=== PATIENT | male | born 1985 | race Caucasian/White ===

== ENCOUNTER 2019-05-06 00:17 | Emergency (ER) | payer BC, OTHER ==
[~2019-05-06] VITALS: Ht 162.9 cm; Wt 75.0 kg
--- NOTE | 2019-05-06 00:40 | ED Upper Extremity ---
General Chief Complaint: Upper Extremity Stated Complaint: LEFT SHOULDER PAIN Nursing Triage Note: PT. REPORTED HE WHEN HE WOKE UP 2 DAYS AGO HE HAD LEFT SHOULDER PAIN. HE IS UNABLE TO SLEEP BECAUSE OF THE PAIN. PT. REPORTED UNKNOWN CAUSE FOR THE SHOULDER PAIN. Nursing Sepsis Screen: No Definite Risk Source: patient Exam Limitations: no limitations History of Present Illness Date Seen by Provider: May 06, 2019 Time Seen by Provider: 00:28 Initial Comments The patient is a 33-year-old male presents for evaluation of 2-3 days of upper left shoulder/back discomfort which is been bothering him. 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 He cannot think of any recent injury to the shoulder or any reason for his pain. He states that when he takes a deep breath it makes the pain worse. He says he is having difficulty sleeping because of the pain. He is able to fully lift the left arm over his head and states this is not really change his discomfort very much. When he takes a deep breath or coughs or hiccups he says this makes the pain worse. When he turns his head to the right distal illness make the pain a little worse and more "tight". He denies focal weakness or numbness, shortness of breath, chest pain, nausea or vomiting, fevers or chills, abdominal pain, palpitations, dizziness or syncope. He is alert and oriented 4, calm, and appears to be in no distress this time. Onset: other (2-3 days) Severity: moderate Pain/Injury Location: left shoulder Method of Injury: unknown Modifying Factors: Improves With Movement (coughing/burping makes pain worse, hurts to take deep breath, moving neck makes pain worse) Allergies and Home Medications Allergies Coded Allergies: No Known Drug Allergies (Unverified , 05/06/19) Home Medications Tramadol HCl 50 Mg Tablet, 50 MG PO Q6H Prescribed by: MARIE MUJICA on 05/06/19 0104 Patient Home Medication List Home Medication List Reviewed: Yes Review of Systems Constitutional: no symptoms reported EENTM: no symptoms reported Respiratory: no symptoms reported Cardiovascular: no symptoms reported Gastrointestinal: no symptoms reported Genitourinary: no symptoms reported Musculoskeletal: joint pain (left shoulder pain) Skin: no symptoms reported Psychiatric/Neurological: No Symptoms Reported All Other Systems Reviewed Negative Unless Noted: Yes Past Bhubica-Dzlsop-Evlizq Hx Past Med/Social Hx: Reviewed Nursing Past Med/Soc Hx Patient Social History Recent Foreign Travel: No Contact w/Someone Who Travel: No Recent Infectious Disease Expo: No Physical Abuse: No Sexual Abuse: No Mistreated: No Physical Exam Vital Signs Vital Signs - First Documented 05/06/19 00:24 Temp 36.8 Pulse 86 Resp 16 B/P (MAP) 140/84 (102) O2 Delivery Room Air Capillary Refill : Less Than 3 Seconds Height, Weight, BMI Height: '" Weight: lbs. oz. kg; 28.00 BMI Method: General Appearance: WD/WN, no apparent distress HEENT: PERRL/EOMI, pharynx normal Neck: non-tender, full range of motion, supple, normal inspection Cardiovascular: regular rate, rhythm, no edema, no JVD Respiratory: chest non-tender, lungs clear, normal breath sounds, no respiratory distress, no accessory muscle use Gastrointestinal: normal bowel sounds, non tender, soft Back: other (minor ttp over left upper trapezius region, worse with neck rotation to right) Shoulder: normal inspection, non-tender, no evidence of injury, normal ROM (FROM no apparent discomfort) Elbow/Forearm: normal inspection, non-tender, no evidence of injury, normal ROM, Right Wrist: Yes normal inspection, Yes non-tender, Yes no evidence of injury, Yes normal ROM Hand: normal inspection, non-tender, no evidence of injury, normal ROM Neurologic/Psychiatric: home health lvn II-XII nml as tested, no motor/sensory deficits, alert, normal mood/affect, oriented x 3 Skin: normal color, warm/dry Progress/Results/Core Measures Results/Orders Lab Results Laboratory Tests Test 05/06/19 00:38 Range/Units D-Dimer 0.43 0.00-0.49 UG/ML My Orders Orders - MARIE MUJICA DO Shoulder 3 View Left (05/06/19 00:33) Chest 1 View Ap/Pa Only (05/06/19 00:33) Ketorolac Injection (Toradol Injection) (05/06/19 00:45) Fibrin Degradation Products (05/06/19 00:34) Ed Ortho/Other Supplies Order (05/06/19 00:50) Medications Given in ED Current Medications Medications Dose Ordered Sig/Mindy Route Start Time Stop Time Status Last Admin Dose Admin Ketorolac Tromethamine 60 mg ONCE ONCE IM 05/06/19 00:45 05/06/19 00:46 DC 05/06/19 00:41 60 MG Vital Signs/I&O 05/06/19 00:24 Temp 36.8 Pulse 86 Resp 16 B/P (MAP) 140/84 (102) O2 Delivery Room Air Blood Pressure Mean: 102 Progress Progress Note : Progress Note @0130 - patient updated on imaging results which are unremarkable. D-dimer is negative. Patient given a sling for comfort. Advise follow-up with PCP in the next 1-2 days and return to the emergency Department immediately for new or worsening symptoms. The patient's cause the pain is likely a musculoskeletal injury. Workup fails reveal any emergent pathology. The patient may need further outpatient workup and imaging. The patient expresses verbal understanding and agreement with plan and is stable for discharge. Departure Impression Primary Impression: Left shoulder pain Additional Impression: Muscle strain of left shoulder region Disposition: HOME, SELF-CARE Condition: Stable Departure-Patient Inst. Decision time for Depature: 01:24 Referrals: SB RIVAS MD Patient Instructions: Shoulder Pain (DC), Muscle Strain Add. Discharge Instructions: Take the prescribed medicine as directed. Wear the splint provided. Follow-up with your doctor in the next 1-2 days. Scripts Tramadol HCl (Ultram) 50 Mg Tablet 50 MG PO Q6H for Pain for 5 Days, #15 TAB Prov: MARIE MUJICA DO 05/06/19 MARIE MUJICA DO May 06, 2019 00:40
[2019-05-06] MEDS ORDERED: KETOROLAC 60 MG/2 ML VIAL IM ONE (00:45)
[2019-05-06] MEDS ORDERED: TRAM-42 PO (01:04)
[2019-05-06 01:27] VITALS: BP 140/84
--- NOTE | 2019-05-06 07:33 | Diagnostic Imaging Report ---
Indication: Chest pain Portable chest 12:41 AM There is right perihilar discoid atelectasis. There is also some left basilar discoid atelectasis. Heart size and pulmonary vascularity are normal. There are no effusions or pneumothoraces. IMPRESSION: Right perihilar and left basilar discoid atelectasis. Dictated by: Dictated on workstation # [id number]
--- NOTE | 2019-05-06 07:44 | Diagnostic Imaging Report ---
Indication: Left shoulder pain 3 views of left shoulder show no fracture, dislocation or other acute abnormalities. IMPRESSION: Negative left shoulder Dictated by: Dictated on workstation # [id number]
== END 2019-05-06 01:26 | disposition home or self-care (01) ==
LOC: ER FS 00:20
DX: S46.912A Strain of unspecified muscle, fascia and tendon at shoulder and upper arm level, left arm, initial encounter (principal); X50.1XXA Overexertion from prolonged static or awkward postures, initial encounter
CPT/HCPCS: 36415; 71045; 73030; 85379; 96372

== ENCOUNTER 2020-03-20 10:26 | Emergency (ER) | payer BC, OTHER ==
[~2020-03-20] VITALS: Ht 162.5 cm; Wt 74.8 kg
[~2020-03-20 10:26] MED LIST: TRAM-42 PO
--- NOTE | 2020-03-20 10:52 | ED Lower Extremity ---
General Chief Complaint: Laceration Stated Complaint: LT FOOT LAC Nursing Triage Note: Patient reports he was using a chainsaw and slipped, cutting the top of his left boot. Boot removed on arrival to ED, small laceration to left fourth toe. Sensation intact to fourth toe, cap refill less than 3 seconds. Patient states his tetanus vaccination is up to date. Nursing Sepsis Screen: No Definite Risk Source: patient History of Present Illness Date Seen by Provider: Mar 20, 2020 Time Seen by Provider: 10:52 Initial Comments 34-year-old male presenting with injury to his left foot. He was using a chainsaw and had slipped cutting into the top of his left boot. He has laceration to the fourth toe. He states his tetanus is up-to-date. He has normal sensation and movement of the toe. Allergies and Home Medications Allergies Coded Allergies: No Known Drug Allergies (Unverified , 05/06/19) Home Medications Amoxicillin/Potassium Clav 1 Each Tablet, 1 EACH PO BID Prescribed by: KEYA SANDOVAL on 03/20/20 1144 Tramadol HCl 50 Mg Tablet, 50 MG PO Q6H Prescribed by: MARIE MUJICA on 05/06/19 0104 Patient Home Medication List Home Medication List Reviewed: Yes Review of Systems Constitutional: No chills, No fever EENTM: no symptoms reported Respiratory: no symptoms reported Cardiovascular: no symptoms reported Gastrointestinal: no symptoms reported Genitourinary: no symptoms reported Musculoskeletal: see HPI Skin: see HPI Psychiatric/Neurological: Denies Numbness, Denies Paresthesia Past Tkwciha-Hcetsg-Gdacrg Hx Past Med/Social Hx: Reviewed Nursing Past Med/Soc Hx Patient Social History Recent Foreign Travel: No Contact w/Someone Who Travel: No Recent Infectious Disease Expo: No Recent Hopitalizations: No Seasonal Allergies Seasonal Allergies: No Past Medical History Surgeries: No Respiratory: No Cardiac: No Neurological: No Genitourinary: No Gastrointestinal: No Musculoskeletal: No Endocrine: No HEENT: No Cancer: No Psychosocial: No Integumentary: No Blood Disorders: No Physical Exam Vital Signs Vital Signs - First Documented 03/20/20 10:31 Temp 36.9 Pulse 89 Resp 18 B/P (MAP) 141/75 (97) Pulse Ox 95 O2 Delivery Room Air Capillary Refill : Less Than 3 Seconds Height, Weight, BMI Height: '" Weight: lbs. oz. 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 Then using 1% plain lidocaine a digital block was applied for anesthesia. A total of 6 ML's of lidocaine were injected. The wound was then scrubbed with the surgical chlorhexidine soap and sterile saline solution. There were small pieces of debris were removed from the wound with scrubbing and cleaning. Patient tolerated this well without any immediate competition. Then using 4-0 Ethilon a total of 4 simple interrupted stitches were placed to approximate the wound edges. Counseled on follow-up and return precautions. Progress/Results/Core Measures Results/Orders My Orders Orders - KEYA SANDOVAL MD Lidocaine 1% Inj 20 Ml (Xylocaine 1% Inj (03/20/20 11:02) Suture Set At Bedside (03/20/20 11:02) Lidocaine 1% Inj 20 Ml (Xylocaine 1% Inj (03/20/20 11:00) Wound Dressing-Ed (03/20/20 11:42) Vital Signs/I&O 03/20/20 03/20/20 10:31 11:56 Temp 36.9 Pulse 89 80 Resp 18 16 B/P (MAP) 141/75 (97) 130/75 Pulse Ox 95 96 O2 Delivery Room Air Blood Pressure Mean: 97 Progress Progress Note : Progress Note verbally consented for repair the laceration to the left fourth toe. His tetanus is already up-to-date. Start on Augmentin for antibiotic coverage since the injury was with the no through the boot. Counseled on follow-up and return precautions. Stitches out in 10-14 days or be seen sooner if having concerns and problems Departure Impression Primary Impression: Laceration of fourth toe of left foot Qualified Codes: S91.115A - Laceration without foreign body of left lesser toe(s) without damage to nail, initial encounter Additional Impression: Contact with no as cause of accidental injury Disposition: HOME, SELF-CARE Condition: Stable Departure-Patient Inst. Decision time for Depature: 11:47 Referrals: NO,LOCAL PHYSICIAN (PCP/Family) Primary Care Physician Patient Instructions: Laceration Repair With Stitches (DC) Add. Discharge Instructions: Try to keep your foot elevated when you can to help with pain, swelling and bleeding. Especially in the next 2-3 days. Keep dry for first 24 hours then may wash with soap and water but do not soak i t. Apply antibiotic ointment and a bandaid 2-3 times a day and as needed. Stitches out in 10-14 days or be seen sooner if concerns for infection such as redness streaking up the foot, pus coming from the wound, or fever over 101 F All discharge instructions reviewed with patient and/or family. Voiced understanding. Scripts Amoxicillin/Potassium Clav (Amox Tr-K Clv 875-125 mg Tab) 1 Each Tablet 1 EACH PO BID for toe laceration for 7 Days, #14 TAB 0 Refills Prov: KEYA SANDOVAL MD 03/20/20 Work/School Note: Work Release Form Date Seen in the Emergency Department: Mar 20, 2020 Return to Work: Mar 22, 2020 Other Restrictions Listed Below: Try to rest and elevate your right foot every 2-3 hours for next 2 weeks Images Extremities-Lower 1 - Laceration (macerated tissue with 1.6 cm laceration into subcutaneous tissue), Tenderness KEYA SANDOVAL MD Mar 20, 2020 10:52
[2020-03-20] MEDS ORDERED: LIDOCAINE 1% INJ 20 ML 20 ML VIAL ONE (11:00)
[2020-03-20] MEDS ORDERED: LIDOCAINE 1% INJ 20 ML 20 ML VIAL INJ STA (11:02)
[2020-03-20] MEDS ORDERED: AMOX1TAB12 PO (11:44)
[2020-03-20 11:56] VITALS: BP 130/75
== END 2020-03-20 12:02 | disposition home or self-care (01) ==
LOC: ER FS 10:27
DX: S91.125A Laceration with foreign body of left lesser toe(s) without damage to nail, initial encounter (principal); W31.2XXA Contact with powered woodworking and forming machines, initial encounter

== ENCOUNTER 2021-09-11 11:54 | Emergency (ER) | payer OTHER ==
[~2021-09-11] VITALS: Ht 162 cm; Wt 74.8 kg
[~2021-09-11 11:54] MED LIST changes: +AMOX1TAB12 PO
--- NOTE | 2021-09-11 12:28 | ED Integumentary General ---
General Chief Complaint: Bite-Animal/Human/Insect Stated Complaint: SPIDER BITE Nursing Triage Note: SPIDER BITE ON RIGHT UPPER RIB AREA ON SATURDAY. HE HAS BEEN TAKING KEFLEX FOR THE BITE. THE AREA IS RED AND EDEMATOUS BUT NO DRAINAGE. HE IS ALSO CONCERNED BC HIS FEET ARE RED. HE HAS A SUNBURN ALL OVER HIM FROM SITTING UNDER A TREE OUTSIDE YESTERDAY. Source: patient Exam Limitations: no limitations History of Present Illness Date Seen by Provider: Sep 11, 2021 Time Seen by Provider: 12:14 Initial Comments Patient is a 35-year-old male who presents to the emergency department with a concern for an insect bite to the right flank/lower chest early Saturday morning. He went to urgent care and was placed on some Keflex. He states that he noticed some "rash" that developed over the last 24 hours on his bilateral feet and ankles. 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 He was not sure what bit him, he feels like it might of been a spider. He did not notice a tick. He denies body aches, fevers or chills. He has been a little nauseous. He states the rash was present before he started taking the Keflex. No shortness of breath, chest pain, upper respiratory complaints. No chronic medical conditions for which he takes medications daily. He is not allergic to anything that he knows of. The rash on his feet and ankles does not itch. No drainage from the bite site on his right flank. He denies rash to his groin. All other review of systems reviewed and negative except as stated Timing/Duration: yesterday Severity: moderate Location: feet Possible Cause: insect bite Associated Symptoms: petechiae, rash, other (Mild nausea) Allergies and Home Medications Allergies Coded Allergies: No Known Drug Allergies (Unverified , 05/06/19) Patient Home Medication List Home Medication List Reviewed: Yes Amoxicillin/Potassium Clav (Amox Tr-K Clv 875-125 mg Tab) 1 Each Tablet, 1 EACH PO BID Prescribed by: KEYA SANDOVAL on 03/20/20 1144 Tramadol HCl (Ultram) 50 Mg Tablet, 50 MG PO Q6H Prescribed by: MARIE MUJICA on 05/06/19 0104 Review of Systems Review of Systems Constitutional: see HPI EENTM: no symptoms reported Respiratory: no symptoms reported Cardiovascular: no symptoms reported Gastrointestinal: nausea Genitourinary: no symptoms reported Musculoskeletal: no symptoms reported Skin: rash All Other Systems Reviewed Negative Unless Noted: Yes Past Mihplqj-Pqacue-Atvdpt Hx Patient Social History Tobacco Use?: No Use of E-Cig and/or Vaping dev: No Substance use?: No Alcohol Use?: No Pt feels they are or have been: No Seasonal Allergies Seasonal Allergies: No Past Medical History Surgeries: No Respiratory: No Cardiac: No Neurological: No Genitourinary: No Gastrointestinal: No Musculoskeletal: No Endocrine: No HEENT: No Cancer: No Psychosocial: No Integumentary: No Blood Disorders: No Physical Exam Vital Signs Vital Signs - First Documented 09/11/21 11:54 Temp 37.0 Pulse 106 Resp 18 B/P (MAP) 133/85 (101) Pulse Ox 100 O2 Delivery Room Air Capillary Refill : Less Than 3 Seconds General Appearance: WD/WN, no apparent distress HEENT: PERRL/EOMI Neck: full range of motion, normal inspection Cardiovascular: regular rate, rhythm Respiratory: lungs clear, normal breath sounds, no respiratory distress, no accessory muscle use Gastrointestinal: non tender, soft Extremities: normal range of motion, no pedal edema, no calf tenderness, normal capillary refill Neurologic/Psychiatric: alert, normal mood/affect, oriented x 3 Skin: normal color, warm/dry, other (Diffuse mild sunburn) Skin Problem Location: lower extremities (Petechial rash noted over both lower legs/ankles and slightly on the dorsum of the feet) Skin Problem Character: other (Patient has a large area of patchy erythema to the right lateral lower chest with a central nidus of small blister. No fluctuance or induration is noted. Slightly tender to the touch. Approximately 8 to 10 cm in diameter; no target lesions are noted over the rest of the skin) Procedures/Interventions Suture Size: 4-0 Progress/Results/Core Measures Results/Orders My Orders Orders - IRINA WOODS MD Cbc With Automated Diff (09/11/21 12:22) Comprehensive Metabolic Panel (09/11/21 12:22) Tick Panel With Lyme Eia (09/11/21 12:22) Vital Signs/I&O 09/11/21 11:54 Temp 37.0 Pulse 106 Resp 18 B/P (MAP) 133/85 (101) Pulse Ox 100 O2 Delivery Room Air Blood Pressure Mean: 101 Progress Progress Note : Time: 12:26 Progress Note Concern for possible tick related illness. We will check some basic labs due to the petechial rash on his feet and ankles. We will give him the prophylactic dose of doxycycline here in the ED at 200mg x1 PO. He is advised to watch his sun exposure after taking the Doxy as it can cause worsening rash and discomfort to sun exposed areas while on this medications. He is encouraged to drink lots of fluids. Tick panel was sent off. Return precautions provided. Departure Impression Primary Impression: Insect bites Qualified Codes: S20.361A - Insect bite (nonvenomous) of right front wall of thorax, initial encounter; W57.XXXA - Bitten or stung by nonvenomous insect and other nonvenomous arthropods, initial encounter Additional Impression: Petechial rash Disposition: 01 HOME, SELF-CARE Condition: Stable Departure-Patient Inst. Decision time for Depature: 12:27 Referrals: [facility] [place],LOCAL PHYSICIAN (PCP) Primary Care Physician Patient Instructions: Insect Bites and Stings ED Add. Discharge Instructions: You can finish off the Keflex since you have started this antibiotic already. You have been treated for prophylaxis for Lyme disease as we are not sure if it was a spider or an engorged tick that bit you. We will contact you from the hospital if your tick panel is positive for any tick borne illnesses. Return to the emergency department for any new, concerning or emergent complaints. If the rash on your feet and ankles is worsening over the course of the next 24 to 48 hours or you develop any other new concerning symptoms please come back to the emergency room for reevaluation. You can apply an opgv-xii-crescvs steroid cream or Benadryl cream for itching and discomfort to the rash under your right arm. Copy Copies To 1: ELDA BERRIOS KATHRYN M MD Sep 11, 2021 12:28
[2021-09-11 12:42] LABS: BASOPHILS % (AUTO) 0 % (0-10); EOSINOPHILS # (AUTO) 0.1 10^3/uL (0.0-0.3); EOSINOPHILS % (AUTO) 1 % (0-10); HEMATOCRIT 45 % (40-54); HEMOGLOBIN 16.2 g/dL (13.3-17.7); LYMPHOCYTES # (AUTO) 0.8 10^3/uL (1.0-4.0); LYMPHOCYTES % (AUTO) 15 % (12-44); MEAN CORPUSCULAR HEMOGLOBIN 29 pg (25-34); MEAN CORPUSCULAR HGB CONC 36 g/dL (32-36); MEAN CORPUSCULAR VOLUME 81 fL (80-99); MEAN PLATELET VOLUME 8.5 fL (9.0-12.2); MONOCYTES # (AUTO) 0.4 10^3/uL (0.0-1.0); MONOCYTES % (AUTO) 6 % (0-12); NEUTROPHILS # (AUTO) 4.5 10^3/uL (1.8-7.8); NEUTROPHILS % (AUTO) 78 % (42-75); PLATELET COUNT 274 10^3/uL (130-400); WHITE BLOOD COUNT 5.8 10^3/uL (4.3-11.0)
[2021-09-11 12:56] LABS: BUN/CREATININE RATIO 8; CARBON DIOXIDE 22 MMOL/L (21-32); CHLORIDE 103 MMOL/L (98-107); CREATININE SERUM 0.88 MG/DL (0.60-1.30); GFR ESTIMATED 116; GLUCOSE 125 MG/DL (70-105); POTASSIUM 3.6 MMOL/L (3.6-5.0); SODIUM 139 MMOL/L (135-145)
[2021-09-11 12:57] LABS: ALANINE AMINOTRANSFERASE 32 U/L (0-55); ALBUMIN 4.7 GM/DL (3.2-4.5); ALKALINE PHOSPHATASE 72 U/L (40-136); BILIRUBIN,TOTAL 0.8 MG/DL (0.1-1.0); CALCIUM 9.2 MG/DL (8.5-10.1); TOTAL PROTEIN 7.4 GM/DL (6.4-8.2)
[2021-09-11] MEDS ORDERED: DOXYCYCLINE 100 MG (VIBRAMYCIN) TABLET PO STA (13:15)
[2021-09-11 13:22] VITALS: BP 133/85
== END 2021-09-11 13:25 | disposition home or self-care (01) ==
LOC: EDUNIT# 11:54 → ER FS 11:56
DX: S20.361A Insect bite (nonvenomous) of right front wall of thorax, initial encounter (principal); R23.3 Spontaneous ecchymoses; W57.XXXA Bitten or stung by nonvenomous insect and other nonvenomous arthropods, initial encounter
CPT/HCPCS: 36415; 80053; 85025; 86618; 86666; 86668; 86757